=== PATIENT | female | born 2005 | race Two or more races ===

== ENCOUNTER 2025-03-11 09:36 | Outpatient (CLI) | payer OTHER ==
[2025-03-11 10:19] LABS: Hematocrit 41.0 % (36.0-46.0); Hemoglobin 13.5 g/dL (12.2-16.2); Mean Corpuscular Hemoglobin 25.2 pg (28.0-32.0); Mean Corpuscular Volume 76.6 fL (80.0-100.0); Nucleated Red Blood Cells % 0.0 %
[2025-03-11 10:24] LABS: Urine Budding Yeast OCCASIONAL /hpf (None Seen); Urine Protein, UAD TRACE (Negative)
[2025-03-11 10:34] LABS: Alanine Aminotransferase 56 U/L (7-40); Albumin 4.4 g/dL (3.2-4.8); Alkaline Phosphatase 63 U/L (46-116); Anion Gap 9 (5-15); BUN/Creatinine Ratio 7.9 (10.0-20.0); Blood Urea Nitrogen 6 mg/dL (9-23); Calcium 9.2 mg/dL (8.7-10.4); Carbon Dioxide 25 mmol/L (20-31); Chloride 107 mmol/L (98-107); Glucose 86 mg/dL (74-106); Potassium 4.0 mmol/L (3.5-5.1); Sodium 141 mmol/L (136-145); Total Protein 7.8 g/dL (5.7-8.2); Triglycerides 222 mg/dL (< 150)
[2025-03-11 10:35] LABS: Bilirubin, Total 0.4 mg/dL (0.2-1.0); Cholesterol 202 mg/dL (< 200); HDL Cholesterol 40 mg/dL (40-59)
[2025-03-11 10:55] LABS: Microalb/Creat Ratio, Urine < 3.0
[2025-03-11 11:18] LABS: Uric Acid 6.7 mg/dL (3.1-7.8)
[2025-03-12 15:07] LABS: Chlamydia Trachomatis, NAA Negative (Negative); Neisseria gonorrhoeae, NAA Negative (Negative)
== END 2025-03-11 17:00 | disposition home or self-care (01) ==
LOC: LAB 09:36
PROVIDERS: ATTEND Nurse Practitioner Family
DX: E78.2 Mixed hyperlipidemia (principal); E66.01 Morbid (severe) obesity due to excess calories; Z13.89 Encounter for screening for other disorder; Z00.01 Encounter for general adult medical examination with abnormal findings; Z11.3 Encounter for screening for infections with a predominantly sexual mode of transmission
CPT/HCPCS: 36415; 80053; 80061; 81001; 82043; 82570; 83036; 84443; 84550; 85025; 87086

== ENCOUNTER 2025-04-28 08:30 | Outpatient (CLI) | payer OTHER ==
[2025-04-28 09:13] LABS: Nucleated Red Blood Cells % 0.0 %
[2025-04-28 09:16] LABS: Hematocrit 39.1 % (36.0-46.0); Hemoglobin 12.8 g/dL (12.2-16.2); Mean Corpuscular Hemoglobin 25.2 pg (28.0-32.0); Mean Corpuscular Volume 77.2 fL (80.0-100.0)
[2025-04-28 09:18] LABS: Urine Protein, UAD Negative (Negative)
[2025-04-28 09:28] LABS: Alkaline Phosphatase 70 U/L (46-116); Anion Gap 10 (5-15); BUN/Creatinine Ratio 8.7 (10.0-20.0); Carbon Dioxide 25 mmol/L (20-31); Chloride 106 mmol/L (98-107); Glucose 92 mg/dL (74-106); Potassium 3.6 mmol/L (3.5-5.1); Sodium 141 mmol/L (136-145); Total Protein 7.3 g/dL (5.7-8.2)
[2025-04-28 09:29] LABS: Albumin 4.2 g/dL (3.2-4.8); Bilirubin, Total 0.4 mg/dL (0.2-1.0); Cholesterol 179 mg/dL (< 200)
[2025-04-28 09:36] LABS: Alanine Aminotransferase 46 U/L (7-40); Blood Urea Nitrogen 6 mg/dL (9-23); Calcium 8.6 mg/dL (8.7-10.4); HDL Cholesterol 37 mg/dL (40-59); Triglycerides 224 mg/dL (< 150)
[2025-04-30 06:07] LABS: Chlamydia Trachomatis, NAA Negative (Negative); Neisseria gonorrhoeae, NAA Negative (Negative)
[2025-04-30 18:07] LABS: IgE Cottonwood 0.13 kU/L (Class 0/I); IgE Elm, American <0.10 kU/L (Class 0); IgE Johnson Grass <0.10 kU/L (Class 0); IgE Mouse Urine <0.10 kU/L (Class 0); IgE Mugwort <0.10 kU/L (Class 0); IgE Ragweed, Short 0.13 kU/L (Class 0/I); IgE Rye, Perennial <0.10 kU/L (Class 0); IgE Tri a 19(w-5 gliadin) <0.10 kU/L (Class 0); T007-IgE Oak, White <0.10 kU/L (Class 0)
== END 2025-04-28 17:00 | disposition home or self-care (01) ==
LOC: LAB 08:30
PROVIDERS: ATTEND Family Medicine
DX: Q82.2 Congenital cutaneous mastocytosis (principal); L53.8 Other specified erythematous conditions
CPT/HCPCS: 36415; 80053; 80061; 81003; 82785; 83036; 84443; 85025; 86003

== ENCOUNTER → 2025-05-19 | Outpatient (CLI) | payer OTHER ==
[2025-05-19 09:35] LABS: Alanine Aminotransferase 47 U/L (7-40); Albumin 4.4 g/dL (3.2-4.8); Alkaline Phosphatase 73 U/L (46-116); BUN/Creatinine Ratio 9.1 (10.0-20.0); Blood Urea Nitrogen 7 mg/dL (9-23); Calcium 9.1 mg/dL (8.7-10.4); Carbon Dioxide 27 mmol/L (20-31); Glucose 92 mg/dL (74-106); Potassium 4.1 mmol/L (3.5-5.1); Sodium 141 mmol/L (136-145); Total Protein 7.7 g/dL (5.7-8.2); Triglycerides 234 mg/dL (< 150)
[2025-05-19 09:36] LABS: Bilirubin, Total 0.3 mg/dL (0.2-1.0); Cholesterol 202 mg/dL (< 200); HDL Cholesterol 39 mg/dL (40-59)
[2025-05-19 09:48] LABS: Anion Gap 9 (5-15); Chloride 105 mmol/L (98-107)
[2025-05-19 09:52] LABS: Microalb/Creat Ratio, Urine < 3.0
== END | disposition home or self-care (01) ==
LOC: LAB 08:38
PROVIDERS: ATTEND Family Medicine
DX: E66.01 Morbid (severe) obesity due to excess calories (principal); E88.819 Insulin resistance, unspecified; R79.89 Other specified abnormal findings of blood chemistry
CPT/HCPCS: 36415; 80053; 80061; 82043; 82570; 83036